=== PATIENT | male | born 1980 | race Caucasian/White ===

== ENCOUNTER 2018-11-04 14:36 | Emergency (ER) | payer SELFPAY ==
[~2018-11-04] VITALS: Ht 177.8 cm; Wt 79.4 kg
[2018-11-04] MEDS ORDERED: IV NORMAL SALINE 1000 ML BAG IV ONE (15:00)
[2018-11-04] MEDS ORDERED: ONDANSETRON 4 MG/2 ML VIAL IV ONE (15:00)
[2018-11-04] MEDS ORDERED: ONDANSETRON 4 MG/2 ML VIAL ONE (15:05)
[2018-11-04 15:15] LABS: BASOPHILS % (AUTO) 0.4 % (0.0-2.0); EOSINOPHILS # (AUTO) 0.1 K/uL (0.0-0.7); EOSINOPHILS % (AUTO) 0.7 % (0.0-7.0); HEMATOCRIT 44.7 % (36.7-47.1); HEMOGLOBIN 15.2 g/dL (12.5-16.3); LYMPHOCYTES # (AUTO) 1.2 K/uL (20.0-40.0); LYMPHOCYTES % (AUTO) 15.6 % (20.5-51.5); MEAN CORPUSCULAR HEMOGLOBIN 29.4 uug (23.8-33.4); MEAN CORPUSCULAR HGB CONC 34 g/dL (32.5-36.3); MEAN CORPUSCULAR VOLUME 86.3 fL (73.0-96.2); MONOCYTES # (AUTO) 0.6 K/uL (2.0-10.0); MONOCYTES % (AUTO) 7.3 % (0.0-11.0); NEUTROPHILS # (AUTO) 5.8 K/uL (1.8-8.9); PLATELET COUNT (AUTO) 239 K/uL (152-348); RED BLOOD CELL COUNT(AUTO) 5.18 MIL/uL (4.06-5.63); WHITE BLOOD COUNT (AUTO) 7.6 K/uL (3.6-10.2)
[2018-11-04 15:22] LABS: CREATININE 1.1 mg/dL (0.6-1.3); POTASSIUM 3.8 mmol/L (3.5-5.1)
[2018-11-04] MEDS ORDERED: LORAZEPAM 0.5 MG TABLET PO ONE ×2 (16:15)
[2018-11-04] MEDS ORDERED: ACETAMINOPHEN 325 MG TABLET PO ONE (16:15)
[2018-11-04] MEDS ORDERED: KETOROLAC TROMETHAMINE 30 MG INJ IVP ONE (16:15)
[2018-11-04] MEDS ORDERED: ACETAMINOPHEN ES 500 MG TABLET ONE (16:21)
[2018-11-04] MEDS ORDERED: KETOROLAC TROMETHAMINE 30 MG INJ ONE (16:21)
[2018-11-04] MEDS ORDERED: LORAZEPAM 2 MG/1 ML VIAL ONE (16:21)
[2018-11-04] MEDS ORDERED: LORAZEPAM 2 MG/1 ML VIAL IV ONE (16:30)
--- NOTE | 2018-11-04 16:45 | NUR ---
Patient discharged to home in stable conditon. Written and verbal after care instructions given. Patient verbalizes understanding of instructions. ALL BELONGINGS W/ PT. PT SELF-AMBULATED W/O DIFFICULTY. PT WILL BE DRIVEN HOME BY EX- IN PRIVATE VEHICLE. 18G IV ACCESS IN RAC REMOVED PRIOR TO D/C - INNER CANNULA INTACT.
[2018-11-04 16:47] VITALS: BP 122/80
== END 2018-11-04 16:48 | disposition home or self-care (01) ==
LOC: ER 14:36
DX: R51 Headache (principal); R42 Dizziness and giddiness; R06.02 Shortness of breath; R11.0 Nausea
CPT/HCPCS: 36415; 70450; 71045; 80048; 84484; 85025; 85730; 93005; 96361; 96374; 96375; 99284; J1885; J2060; J2405; 70030-TC; A4663; A9150; J7030